=== PATIENT | male | born 1960 | race African-American/Black ===

== ENCOUNTER 2019-01-12 10:29 | Emergency (ER) | payer OTHER ==
[~2019-01-12] VITALS: Ht 170.2 cm; Wt 67.0 kg
[2019-01-12 12:15] VITALS: BP 132/79
== END 2019-01-12 12:17 | disposition home or self-care (01) ==
LOC: ER 10:49
DX: H92.12 Otorrhea, left ear (principal); J44.9 Chronic obstructive pulmonary disease, unspecified; E11.9 Type 2 diabetes mellitus without complications; Z86.73 Personal history of transient ischemic attack (TIA), and cerebral infarction without residual deficits
CPT/HCPCS: 99283

== ENCOUNTER 2019-11-08 02:27 | Inpatient (IN) | payer OTHER ==
[~2019-11-08] VITALS: Ht 172.7 cm; Wt 83.2 kg
[2019-11-08] MEDS: IPRATROPIUM/ALBUTEROL 0.5-3(2.5)MG/3ML NEB HHN SCH ×3 (00:36→21:49)
[2019-11-08] MEDS ORDERED: NITROGLYCERIN OINT 1GM/INCH UDPKT TD ONE (03:30)
[2019-11-08 03:53] LABS: BASOPHILS % 0.4 % (0.0-2.0); EOSINOPHILS % 1.9 % (0.0-5.0); HEMATOCRIT. 41.3 % (42.0-52.0); HEMOGLOBIN. 13.8 g/dL (14.0-18.0); LYMPHOCYTES % 13.7 % (20.0-50.0); MEAN CORPUSCULAR HEMOGLOBIN 27.6 pg (28.0-32.0); MEAN CORPUSCULAR VOLUME 82.7 fL (80.0-94.0); MEAN PLATELET VOLUME 7.1 fl (7.4-10.4); MONOCYTES % 6.5 % (2.0-8.0); NEUTROPHILS % 77.5 % (40.0-76.0); PLATELET 282 x1000/uL (130-400); RED CELL DISTRIBUTION WIDTH 16.2 % (11.6-14.6)
[2019-11-08 03:58] LABS: PROTHROMBIN TIME 10.6 sec (9.6-11.0)
[2019-11-08 04:03] LABS: CHLORIDE 102 mEq/L (98-107)
[2019-11-08] MEDS ORDERED: FUROSEMIDE 20MG/2ML VIAL IVP ONE ×2 (04:30→05:47)
[2019-11-08 10:32] VITALS: BP 117/72
[2019-11-08 13:00] VITALS: BP 108/71
[2019-11-08] MEDS ORDERED: MAGNESIUM/ALUMINUM HYDROXIDE/SIMETHICONE 30ML UDC PO PRN (13:45)
[2019-11-08] MEDS ORDERED: DEXTROSE 50% WATER 50ML SYRINGE IV PRN ×2 (13:45→17:45)
[2019-11-08] MEDS ORDERED: ONDANSETRON HCL 4MG/2ML INJ IV PRN (13:45)
[2019-11-08] MEDS ORDERED: ACETAMINOPHEN 325MG TABLET PO PRN (13:45)
[2019-11-08] MEDS ORDERED: IPRATROPIUM/ALBUTEROL 0.5-3(2.5)MG/3ML NEB HHN PRN (13:45)
[2019-11-08] MEDS ORDERED: DIPHENHYDRAMINE 50MG/ML VIAL IV PRN (13:45)
[2019-11-08] MEDS ORDERED: CLONIDINE 0.1MG TABLET PO PRN (13:45)
[2019-11-08] MEDS: ENOXAPARIN 40MG/0.4ML SYR SUBCUT SCH (14:56)
[2019-11-08] MEDS: FUROSEMIDE 40MG/4ML VIAL IVP SCH (14:56)
[2019-11-08] MEDS: SODIUM CHLORIDE 0.9% INJ 3ML FLUSH IVF SCH ×2 (14:57→22:23)
[2019-11-08] MEDS ORDERED: BLOOD SUGAR DIAGNOSTIC STRIP TEST SCH (17:40)
[2019-11-08] MEDS: BLOOD SUGAR DIAGNOSTIC STRIP TEST SCH ×2 (18:03→21:00)
[2019-11-08] MEDS: INSULIN LISPRO 100 UNITS/ML SUBCUT SCH ×2 (18:05→22:22)
[2019-11-08 20:00] VITALS: BP 102/69
[2019-11-08] MEDS ORDERED: KETOROLAC 30MG/ML VIAL IV PRN (21:45)
[2019-11-08] MEDS: DIPHENHYDRAMINE 50MG/ML VIAL IV NR (22:14)
[2019-11-09] VITALS: BP 110/90
[2019-11-09] MEDS: DIPHENHYDRAMINE 50MG/ML VIAL IV NR (00:26)
[2019-11-09 04:00] VITALS: BP 104/73
[2019-11-09] MEDS: IPRATROPIUM/ALBUTEROL 0.5-3(2.5)MG/3ML NEB HHN SCH ×5 (05:14→21:39)
[2019-11-09] MEDS: BLOOD SUGAR DIAGNOSTIC STRIP TEST SCH ×4 (06:56→21:00)
[2019-11-09] MEDS: SODIUM CHLORIDE 0.9% INJ 3ML FLUSH IVF SCH ×3 (06:58→21:34)
[2019-11-09 08:00] VITALS: BP 112/79
[2019-11-09] MEDS: INSULIN LISPRO 100 UNITS/ML SUBCUT SCH ×4 (08:08→21:32)
[2019-11-09] MEDS: FUROSEMIDE 40MG/4ML VIAL IVP SCH ×3 (08:10→17:33)
[2019-11-09] MEDS: ENOXAPARIN 40MG/0.4ML SYR SUBCUT SCH (08:10)
[2019-11-09 12:00] VITALS: BP 100/61
[2019-11-09 16:00] VITALS: BP 125/86
[2019-11-09] MEDS ORDERED: SITA100T11 MT (17:50)
[2019-11-09] MEDS ORDERED: DIGO125T80 MT (17:50)
[2019-11-09] MEDS ORDERED: GLIM4TAB36 MT (17:50)
[2019-11-09] MEDS ORDERED: ARIP5TAB58 MT (17:50)
[2019-11-09] MEDS ORDERED: CLOP75TA33 PO (17:50)
[2019-11-09] MEDS ORDERED: RAMI10CA68 MT (17:50)
[2019-11-09] MEDS ORDERED: ATOR40TA70 MT (17:50)
[2019-11-09] MEDS ORDERED: METO-385 MT (17:50)
[2019-11-09] MEDS ORDERED: CYM20 PO (17:50)
[2019-11-09] MEDS ORDERED: FURO40TA5 MT (17:50)
[2019-11-09] MEDS ORDERED: CANA1TAB4 MT (17:50)
[2019-11-09 20:00] VITALS: BP 118/77
[2019-11-09] MEDS: CARVEDILOL 6.25 MG TABLET PO SCH (21:25)
[2019-11-09] MEDS: GUAIFENESIN 200MG/10ML SUGAR FREE UDC PO PRN (21:29)
[2019-11-10] VITALS (7 sets, daily range): BP systolic 103–122; BP diastolic 67–85
[2019-11-10] MEDS: IPRATROPIUM/ALBUTEROL 0.5-3(2.5)MG/3ML NEB HHN SCH ×6 (01:03→21:56)
[2019-11-10] MEDS: FUROSEMIDE 40MG/4ML VIAL IVP SCH ×2 (06:29→17:26)
[2019-11-10] MEDS: SODIUM CHLORIDE 0.9% INJ 3ML FLUSH IVF SCH ×3 (06:29→21:58)
[2019-11-10] MEDS: BLOOD SUGAR DIAGNOSTIC STRIP TEST SCH ×4 (06:39→21:00)
[2019-11-10 07:46] LABS: BASOPHILS % 0.6 % (0.0-2.0); EOSINOPHILS % 3.9 % (0.0-5.0); HEMATOCRIT. 42.2 % (42.0-52.0); HEMOGLOBIN. 13.9 g/dL (14.0-18.0); LYMPHOCYTES % 21.5 % (20.0-50.0); MEAN CORPUSCULAR HEMOGLOBIN 26.9 pg (28.0-32.0); MEAN CORPUSCULAR VOLUME 81.5 fL (80.0-94.0); MEAN PLATELET VOLUME 7.2 fl (7.4-10.4); MONOCYTES % 11.1 % (2.0-8.0); NEUTROPHILS % 62.9 % (40.0-76.0); PLATELET 270 x1000/uL (130-400); RED BLOOD CELL COUNT 5.17 mill/uL (4.7-6.1); RED CELL DISTRIBUTION WIDTH 15.8 % (11.6-14.6)
[2019-11-10] MEDS: INSULIN LISPRO 100 UNITS/ML SUBCUT SCH ×4 (08:10→21:58)
[2019-11-10 08:21] LABS: CHLORIDE 102 mEq/L (98-107)
[2019-11-10] MEDS: LOSARTAN POTASSIUM 25 MG TABLET PO SCH (09:00)
[2019-11-10] MEDS: CARVEDILOL 6.25 MG TABLET PO SCH (09:00)
[2019-11-10] MEDS: ENOXAPARIN 40MG/0.4ML SYR SUBCUT SCH (09:24)
[2019-11-10 11:38] LABS: BG BASE EXCESS 2.6 mmol/L (-2.0-2.0); BG CARBOXYHEMOGLOBIN 0.9 % (0.5-1.5); BG DEOXYHEMOGLOBIN 5.6 % (0.0-5.0); BG FRACTION INSPIRED OXYGEN 21; BG HCO3 ACT 25.9 mmol/L (22.0-26.0); BG OXYGEN SATURATION 94.3 % (92.0-98.5); BG OXYHEMOGLOBIN 93.5 % (94.0-97.0); BG PCO2 36.3 mmHg (35.0-45.0); BG PH 7.472 (7.350-7.450); BG PO2 72.7 mmHg (75.0-100.0); BG SAMPLE SITE RIGHT BRACHIAL; BG TOTAL HEMOGLOBIN 14.8 g/dL (12.0-18.0); BG VENT MODE ROOM AIR
[2019-11-10 12:53] LABS: HEMATOCRIT 43.1 % (42.0-52.0); HEMOGLOBIN 14.3 g/dL (14.0-18.0); MEAN CORPUSCULAR VOLUME 81.4 fL (80.0-94.0); PLATELET 283 x1000/uL (130-400); RED CELL DISTRIBUTION WIDTH 15.8 % (11.6-14.6)
[2019-11-10] MEDS ORDERED: INSULIN GLARGINE UD 100 UNITS/ML SYR SUBCUT NR (13:00)
[2019-11-10 13:50] LABS: CLARITY URINE CLEAR (CLEAR); COLOR URINE YELLOW (YELLOW); KETONES URINE NEGATIVE (NEGATIVE); LEUKOCYTE ESTERASE URINE NEGATIVE (NEGATIVE); NITRITE URINE NEGATIVE (NEGATIVE); OCCULT BLOOD URINE NEGATIVE (NEGATIVE); PH URINE 6.5 (4.5-8.0); PROTEIN URINE NEGATIVE (NEGATIVE); SPECIFIC GRAVITY URINE 1.023 (1.005-1.030); UROBILINOGEN URINE 0.2 E.U./dL (0.2-1.0)
[2019-11-10] MEDS: CARVEDILOL 12.5MG TABLET PO SCH (20:27)
[2019-11-10] MEDS: GUAIFENESIN/CODEINE 200-20MG/10ML UDC PO PRN (21:46)
[2019-11-11] VITALS: BP 96/58
[2019-11-11] MEDS: IPRATROPIUM/ALBUTEROL 0.5-3(2.5)MG/3ML NEB HHN SCH ×6 (00:48→21:13)
[2019-11-11] MEDS: GUAIFENESIN/CODEINE 200-20MG/10ML UDC PO PRN ×2 (03:51→10:13)
[2019-11-11 03:54] VITALS: BP 99/60
[2019-11-11] MEDS: SODIUM CHLORIDE 0.9% INJ 3ML FLUSH IVF SCH ×3 (06:35→20:46)
[2019-11-11] MEDS: FUROSEMIDE 40MG/4ML VIAL IVP SCH ×2 (06:35→18:53)
[2019-11-11] MEDS: BLOOD SUGAR DIAGNOSTIC STRIP TEST SCH ×4 (07:40→20:52)
[2019-11-11 08:00] VITALS: BP 98/65
[2019-11-11] MEDS: INSULIN LISPRO 100 UNITS/ML SUBCUT SCH ×4 (08:49→21:00)
[2019-11-11] MEDS: ENOXAPARIN 40MG/0.4ML SYR SUBCUT SCH (08:50)
[2019-11-11] MEDS: CARVEDILOL 12.5MG TABLET PO SCH ×2 (09:00→20:52)
[2019-11-11] MEDS: LOSARTAN POTASSIUM 25 MG TABLET PO SCH (09:00)
[2019-11-11 12:00] VITALS: BP 112/89
[2019-11-11 15:43] LABS: HEMATOCRIT 42.2 % (42.0-52.0); MEAN CORPUSCULAR HEMOGLOBIN 27.1 pg (28.0-32.0); MEAN CORPUSCULAR VOLUME 81.6 fL (80.0-94.0); PLATELET 275 x1000/uL (130-400); RED BLOOD CELL COUNT 5.17 mill/uL (4.7-6.1); RED CELL DISTRIBUTION WIDTH 15.6 % (11.6-14.6)
[2019-11-11 15:59] LABS: CHLORIDE 98 mEq/L (98-107)
[2019-11-11 20:00] VITALS: BP 101/73
[2019-11-11] MEDS: GUAIFENESIN 200MG/10ML SUGAR FREE UDC PO PRN (20:59)
[2019-11-12] VITALS: BP 98/68
[2019-11-12] MEDS: IPRATROPIUM/ALBUTEROL 0.5-3(2.5)MG/3ML NEB HHN SCH ×4 (00:38→11:33)
[2019-11-12 04:00] VITALS: BP 136/93
[2019-11-12] MEDS: GUAIFENESIN/CODEINE 200-20MG/10ML UDC PO PRN (04:49)
[2019-11-12] MEDS: SODIUM CHLORIDE 0.9% INJ 3ML FLUSH IVF SCH (05:54)
[2019-11-12] MEDS: BLOOD SUGAR DIAGNOSTIC STRIP TEST SCH ×2 (05:54→12:40)
[2019-11-12 08:00] VITALS: BP 97/59
[2019-11-12] MEDS: LOSARTAN POTASSIUM 25 MG TABLET PO SCH (09:00)
[2019-11-12] MEDS: CARVEDILOL 12.5MG TABLET PO SCH (09:00)
[2019-11-12 09:12] VITALS: BP 109/74
[2019-11-12] MEDS: FUROSEMIDE 40MG/4ML VIAL IVP SCH (09:14)
[2019-11-12] MEDS: INSULIN LISPRO 100 UNITS/ML SUBCUT SCH ×2 (09:19→13:55)
[2019-11-12] MEDS: ENOXAPARIN 40MG/0.4ML SYR SUBCUT SCH (09:20)
[2019-11-12 11:43] LABS: BASOPHILS % 0.6 % (0.0-2.0); EOSINOPHILS % 3.6 % (0.0-5.0); HEMATOCRIT. 39.4 % (42.0-52.0); LYMPHOCYTES % 15.6 % (20.0-50.0); MEAN CORPUSCULAR HEMOGLOBIN 26.7 pg (28.0-32.0); MONOCYTES % 10.2 % (2.0-8.0); PLATELET 236 x1000/uL (130-400); RED BLOOD CELL COUNT 4.87 mill/uL (4.7-6.1); RED CELL DISTRIBUTION WIDTH 15.6 % (11.6-14.6)
[2019-11-12 12:00] VITALS: BP 100/70
[2019-11-12 12:01] LABS: CHLORIDE 98 mEq/L (98-107)
[2019-11-12] MEDS ORDERED: GUAI-824 MT (13:25)
[2019-11-12] MEDS ORDERED: IPRA3AMP9 NEB (13:25)
[2019-11-12 14:41] VITALS: BP 100/70
[2019-11-12] MEDS ORDERED: CARVEDILOL 12.5MG TABLET PO SCH (21:00)
== END 2019-11-12 16:15 | disposition home or self-care (01) | DRG 194 ==
LOC: ER 02:27 → 7WST 05:13 → EDBEDREQTM 05:15 → EDBEDREQ 05:15 → ENRESERV 10:09
PROVIDERS: ADMIT Internal Medicine; ATTEND Internal Medicine
PROC: 4B02XTZ Measurement of Cardiac Defibrillator, External Approach (ICD-10-PCS; principal; 2019-11-10)
DX: I11.0 Hypertensive heart disease with heart failure (principal); I47.2 Ventricular tachycardia; I27.20 Pulmonary hypertension, unspecified; I42.0 Dilated cardiomyopathy; I69.351 Hemiplegia and hemiparesis following cerebral infarction affecting right dominant side; J44.1 Chronic obstructive pulmonary disease with (acute) exacerbation; I50.23 Acute on chronic systolic (congestive) heart failure; E11.9 Type 2 diabetes mellitus without complications; E78.5 Hyperlipidemia, unspecified; F03.90 Unspecified dementia, unspecified severity, without behavioral disturbance, psychotic disturbance, mood disturbance, and anxiety; I34.0 Nonrheumatic mitral (valve) insufficiency; I49.3 Ventricular premature depolarization; Z82.49 Family history of ischemic heart disease and other diseases of the circulatory system; Z95.810 Presence of automatic (implantable) cardiac defibrillator; Z83.3 Family history of diabetes mellitus
CPT/HCPCS: 36415; 36600; 71045; 80048; 80053; 81003; 82375; 82805; 82962; 83735; 83880; 84484; 85025; 85027; 93005; 93306; 93970; 94618; 94640; 99284; J1200; J1650; J1815; J1885; J1940

== ENCOUNTER 2019-12-27 13:53 | Inpatient (IN) | payer OTHER ==
[~2019-12-27] VITALS: Ht 167.6 cm; Wt 86.6 kg
[~2019-12-27 13:53] MED LIST: ARIP5TAB58 MT; ATOR40TA70 MT; CANA1TAB4 MT; CLOP75TA33 PO; CYM20 PO; DIGO125T80 MT; FURO40TA5 MT; GLIM4TAB36 MT; IPRA3AMP9 NEB; METO-385 MT; RAMI10CA68 MT; SITA100T11 MT
[2019-12-27 14:40] LABS: BASOPHILS % 0.6 % (0.0-2.0); EOSINOPHILS % 1.2 % (0.0-5.0); HEMATOCRIT. 38.9 % (42.0-52.0); LYMPHOCYTES % 17.8 % (20.0-50.0); MEAN CORPUSCULAR HEMOGLOBIN 26.8 pg (28.0-32.0); MEAN CORPUSCULAR VOLUME 80.2 fL (80.0-94.0); MEAN PLATELET VOLUME 7.2 fl (7.4-10.4); MONOCYTES % 9.1 % (2.0-8.0); NEUTROPHILS % 71.3 % (40.0-76.0); PLATELET 254 x1000/uL (130-400); RED BLOOD CELL COUNT 4.85 mill/uL (4.7-6.1); RED CELL DISTRIBUTION WIDTH 16.7 % (11.6-14.6)
[2019-12-27 14:46] LABS: CHLORIDE 99 mEq/L (98-107)
[2019-12-27] MEDS ORDERED: DEXAMETHASONE 4MG/ML 1ML VIAL IV ONE (15:15)
[2019-12-27] MEDS ORDERED: IPRATROPIUM/ALBUTEROL 0.5-3(2.5)MG/3ML NEB HHN ONE ×2 (15:15→17:15)
[2019-12-27] MEDS ORDERED: FUROSEMIDE 40MG/4ML VIAL IVP ONE (15:45)
[2019-12-28] VITALS (14 sets, daily range): BP systolic 93–149; BP diastolic 56–90
[2019-12-28] MEDS ORDERED: HYDROCODONE/ACETAMINOPHEN 5/325MG TABLET PO PRN (04:00)
[2019-12-28] MEDS ORDERED: DEXTROSE 50% WATER 50ML SYRINGE IV PRN (04:00)
[2019-12-28] MEDS: PANTOPRAZOLE 40MG DR TABLET PO SCH (06:00)
[2019-12-28] MEDS ORDERED: METHYLPREDNISOLONE SOD SUCC 40 MG/ML VIAL IV SCH (06:00)
[2019-12-28] MEDS: BLOOD SUGAR DIAGNOSTIC STRIP TEST SCH ×4 (06:01→21:57)
[2019-12-28] MEDS ORDERED: INSULIN LISPRO 100 UNITS/ML SUBCUT SCH (07:20)
[2019-12-28] MEDS ORDERED: IPRATROPIUM/ALBUTEROL 0.5-3(2.5)MG/3ML NEB HHN SCH (08:00)
[2019-12-28 08:23] LABS: CHLORIDE 106 mEq/L (98-107)
[2019-12-28] MEDS ORDERED: FUROSEMIDE 40MG/4ML VIAL IVP SCH (09:00)
[2019-12-28] MEDS: ENOXAPARIN 30MG/0.3ML SYR SUBCUT SCH ×2 (09:11→22:09)
[2019-12-28 09:34] LABS: HEMATOCRIT. 41.8 % (42.0-52.0); HEMOGLOBIN. 13.6 g/dL (14.0-18.0); MEAN CORPUSCULAR HEMOGLOBIN 26.3 pg (28.0-32.0); MEAN CORPUSCULAR VOLUME 80.7 fL (80.0-94.0); MEAN PLATELET VOLUME 7.2 fl (7.4-10.4); PLATELET 291 x1000/uL (130-400); RED BLOOD CELL COUNT 5.18 mill/uL (4.7-6.1)
[2019-12-28] MEDS ORDERED: DIPHENHYDRAMINE 50MG/ML VIAL IV PRN (10:45)
[2019-12-28] MEDS ORDERED: AZITHROMYCIN 500 MG in DEXT 5% WATER 250 ML IV SCH (11:00)
[2019-12-28 11:58] LABS: BG BASE EXCESS -5.1 mmol/L (-2.0-2.0); BG CARBOXYHEMOGLOBIN 0.5 % (0.5-1.5); BG DEOXYHEMOGLOBIN 8.6 % (0.0-5.0); BG FRACTION INSPIRED OXYGEN 21; BG HCO3 ACT 17.3 mmol/L (22.0-26.0); BG METHEMOGLOBIN 0.1 % (0.0-1.5); BG OXYGEN SATURATION 91.3 % (92.0-98.5); BG OXYHEMOGLOBIN 90.8 % (94.0-97.0); BG PCO2 25.8 mmHg (35.0-45.0); BG PH 7.444 (7.350-7.450); BG PO2 61.7 mmHg (75.0-100.0); BG SAMPLE SITE RIGHT RADIAL; BG TOTAL HEMOGLOBIN 13.6 g/dL (12.0-18.0); BG VENT MODE ROOM AIR
[2019-12-28 12:21] LABS: PLATELET ESTIMATE NORMAL
[2019-12-28] MEDS: CEFTRIAXONE 1 G PREMIX 50 ML IV SCH (12:40)
[2019-12-28] MEDS: INSULIN LISPRO 100 UNITS/ML SUBCUT SCH ×3 (12:42→22:16)
[2019-12-28 12:48] LABS: D-DIMER 1.72 mg/L FEU (<0.50); INR 1.1; PARTIAL THROMBOPLASTIN TIME 26.3 sec (23.4-31.0); PROTHROMBIN TIME 11.4 sec (9.6-11.0)
[2019-12-28] MEDS ORDERED: LIDOCAINE HCL/PF 1% 2ML VIAL ONE (13:45)
[2019-12-28] MEDS: ARIPIPRAZOLE 5MG TABLET PO SCH (15:05)
[2019-12-28] MEDS: ASPIRIN 81MG TABLET PO SCH (15:05)
[2019-12-28] MEDS ORDERED: INSULIN GLARGINE UD 100 UNITS/ML SYR SUBCUT ONE (15:30)
[2019-12-28] MEDS: FUROSEMIDE 40MG/4ML VIAL IVP SCH (16:10)
[2019-12-28] MEDS: LINAGLIPTIN 5MG TABLET PO SCH (16:10)
[2019-12-28] MEDS ORDERED: [UNRECOGNIZED DRUG - OTHER] MT SCH (17:00)
[2019-12-28] MEDS ORDERED: CANAGLIFLOZIN MT SCH (17:00)
[2019-12-28] MEDS ORDERED: METFORMIN HCL MT SCH (17:00)
[2019-12-28 17:37] LABS: DIGOXIN 0.2 ng/mL (0.9-2.0)
[2019-12-28] MEDS: GLIMEPIRIDE 2MG TABLET PO SCH (17:53)
[2019-12-28 19:56] LABS: *AMPHETAMINES SCREEN URINE NEGATIVE (NEGATIVE); *BARBITURATES SCREEN URINE NEGATIVE (NEGATIVE)
[2019-12-28 19:57] LABS: *BENZODIAZEPINES SCREEN URINE NEGATIVE (NEGATIVE); *COCAINE SCREEN URINE NEGATIVE (NEGATIVE); CANNABINOID URINE SCREEN NEGATIVE (NEGATIVE); METHADONE URINE SCREEN NEGATIVE (NEGATIVE); OPIATES URINE SCREEN NEGATIVE (NEGATIVE); PHENCYCLIDINE URINE SCREEN NEGATIVE (NEGATIVE)
[2019-12-28] MEDS ORDERED: CARVEDILOL 3.125 MG TABLET PO SCH (21:00)
[2019-12-28] MEDS: METOPROLOL TARTRATE 25MG TABLET PO SCH (21:00)
[2019-12-28] MEDS ORDERED: INSULIN GLARGINE UD 100 UNITS/ML SYR SUBCUT SCH (22:00)
[2019-12-29] VITALS: BP 111/74
[2019-12-29] MEDS ORDERED: METHYLPREDNISOLONE SOD SUCC 40 MG/ML VIAL IV SCH (02:00)
[2019-12-29 04:00] VITALS: BP 100/66
[2019-12-29] MEDS: GLIMEPIRIDE 2MG TABLET PO SCH (06:35)
[2019-12-29] MEDS: PANTOPRAZOLE 40MG DR TABLET PO SCH (06:35)
[2019-12-29] MEDS: BLOOD SUGAR DIAGNOSTIC STRIP TEST SCH ×4 (06:39→21:34)
[2019-12-29] MEDS: INSULIN LISPRO 100 UNITS/ML SUBCUT SCH ×4 (06:45→21:51)
[2019-12-29 08:00] VITALS: BP 129/89
[2019-12-29] MEDS: ENOXAPARIN 30MG/0.3ML SYR SUBCUT SCH ×2 (10:40→21:49)
[2019-12-29] MEDS: CEFTRIAXONE 1 G PREMIX 50 ML IV SCH ×2 (10:40→17:00)
[2019-12-29] MEDS: METOPROLOL TARTRATE 25MG TABLET PO SCH ×2 (10:41→21:49)
[2019-12-29] MEDS: ATORVASTATIN CALCIUM 40MG TABLET PO SCH (10:41)
[2019-12-29] MEDS: FUROSEMIDE 40MG/4ML VIAL IVP SCH ×3 (10:41→16:55)
[2019-12-29] MEDS: LOSARTAN POTASSIUM 25 MG TABLET PO SCH (10:41)
[2019-12-29] MEDS: ASPIRIN 81MG TABLET PO SCH (10:42)
[2019-12-29] MEDS: CLOPIDOGREL 75MG TABLET PO SCH (10:42)
[2019-12-29] MEDS: DIGOXIN 125MCG TABLET PO SCH (10:42)
[2019-12-29 12:00] VITALS: BP 118/82
[2019-12-29] MEDS ORDERED: INSULIN LISPRO 100 UNITS/ML SUBCUT NR (13:30)
[2019-12-29] MEDS ORDERED: INSULIN GLARGINE UD 100 UNITS/ML SYR SUBCUT NR (14:30)
[2019-12-29] MEDS ORDERED: AZITHROMYCIN 250 MG in DEXT 5% WATER 250 ML IV SCH (15:00)
[2019-12-29] MEDS ORDERED: BLOO-1465 MT (15:18)
[2019-12-29] MEDS ORDERED: LEVO500T2 MT (15:18)
[2019-12-29] MEDS ORDERED: FURO-151 MT (15:18)
[2019-12-29] MEDS ORDERED: ALBU90AE INH (15:18)
[2019-12-29] MEDS ORDERED: FLUT1AER INH (15:18)
[2019-12-29] MEDS ORDERED: INSU100I28 SQ (15:18)
[2019-12-29] MEDS ORDERED: ASPI-1497 MT (15:18)
[2019-12-29] MEDS ORDERED: INSLIS SUBCUT (15:18)
[2019-12-29] MEDS ORDERED: LANC-934 TP (15:18)
[2019-12-29] MEDS: AZITHROMYCIN 500 MG TABLET PO SCH (15:20)
[2019-12-29] MEDS: ASCORBIC ACID 500 MG TABLET PO SCH (15:20)
[2019-12-29] MEDS: DULOXETINE HCL 20MG DR CAPSULE PO SCH (15:20)
[2019-12-29] MEDS: ARIPIPRAZOLE 5MG TABLET PO SCH (15:20)
[2019-12-29] MEDS: LINAGLIPTIN 5MG TABLET PO SCH (15:20)
[2019-12-29] MEDS: ZINC SULFATE 220 MG ( 50 ) CAPSULE PO SCH (15:21)
[2019-12-29 15:24] LABS: CHLORIDE 101 mEq/L (98-107)
[2019-12-29 15:30] LABS: BASOPHILS % 0.1 % (0.0-2.0); HEMATOCRIT. 41.2 % (42.0-52.0); HEMOGLOBIN. 13.4 g/dL (14.0-18.0); LYMPHOCYTES % 13.7 % (20.0-50.0); MEAN CORPUSCULAR HEMOGLOBIN 26.5 pg (28.0-32.0); MEAN CORPUSCULAR VOLUME 81.2 fL (80.0-94.0); MEAN PLATELET VOLUME 7.5 fl (7.4-10.4); MONOCYTES % 6.3 % (2.0-8.0); NEUTROPHILS % 79.9 % (40.0-76.0); PLATELET 297 x1000/uL (130-400); RED BLOOD CELL COUNT 5.07 mill/uL (4.7-6.1); RED CELL DISTRIBUTION WIDTH 16.9 % (11.6-14.6)
[2019-12-29 16:00] VITALS: BP 101/74
[2019-12-29] MEDS: INSULIN GLARGINE UD 100 UNITS/ML SYR SUBCUT SCH (21:51)
[2019-12-30] VITALS: BP 123/84
[2019-12-30 04:00] VITALS: BP 109/73
[2019-12-30] MEDS: BLOOD SUGAR DIAGNOSTIC STRIP TEST SCH ×4 (06:11→21:53)
[2019-12-30] MEDS: GLIMEPIRIDE 2MG TABLET PO SCH (06:39)
[2019-12-30] MEDS: INSULIN LISPRO 100 UNITS/ML SUBCUT SCH ×4 (06:40→22:10)
[2019-12-30] MEDS: ATORVASTATIN CALCIUM 40MG TABLET PO SCH (08:31)
[2019-12-30] MEDS: ARIPIPRAZOLE 5MG TABLET PO SCH (08:31)
[2019-12-30] MEDS: METOPROLOL TARTRATE 25MG TABLET PO SCH ×2 (08:31→21:00)
[2019-12-30] MEDS: ASCORBIC ACID 500 MG TABLET PO SCH (08:31)
[2019-12-30] MEDS: ASPIRIN 81MG TABLET PO SCH (08:31)
[2019-12-30] MEDS: CLOPIDOGREL 75MG TABLET PO SCH (08:31)
[2019-12-30] MEDS: LOSARTAN POTASSIUM 25 MG TABLET PO SCH (08:31)
[2019-12-30] MEDS: FUROSEMIDE 40MG/4ML VIAL IVP SCH ×3 (08:32→17:15)
[2019-12-30] MEDS: AZITHROMYCIN 500 MG TABLET PO SCH (08:32)
[2019-12-30] MEDS: ZINC SULFATE 220 MG ( 50 ) CAPSULE PO SCH (08:32)
[2019-12-30] MEDS: DULOXETINE HCL 20MG DR CAPSULE PO SCH (08:32)
[2019-12-30] MEDS: FAMOTIDINE 20MG TABLET PO SCH ×2 (08:32→21:53)
[2019-12-30] MEDS: LINAGLIPTIN 5MG TABLET PO SCH (08:32)
[2019-12-30] MEDS: DIGOXIN 125MCG TABLET PO SCH (08:32)
[2019-12-30] MEDS: ENOXAPARIN 30MG/0.3ML SYR SUBCUT SCH ×2 (08:33→21:54)
[2019-12-30 08:57] VITALS: BP 94/64
[2019-12-30] MEDS: INSULIN GLARGINE UD 100 UNITS/ML SYR SUBCUT SCH ×2 (10:22→22:09)
[2019-12-30 12:30] VITALS: BP 107/78
[2019-12-30 16:00] VITALS: BP 98/72
[2019-12-30] MEDS: CEFTRIAXONE 1 G PREMIX 50 ML IV SCH (18:27)
[2019-12-30 20:00] VITALS: BP 109/76
[2019-12-31] VITALS: BP 112/75
[2019-12-31 04:00] VITALS: BP 105/73
[2019-12-31] MEDS: FUROSEMIDE 40MG/4ML VIAL IVP SCH ×2 (06:37→17:57)
[2019-12-31] MEDS: BLOOD SUGAR DIAGNOSTIC STRIP TEST SCH ×4 (07:40→21:15)
[2019-12-31 08:00] VITALS: BP 124/85
[2019-12-31 10:14] LABS: HEMATOCRIT 45.3 % (42.0-52.0); HEMOGLOBIN 14.9 g/dL (14.0-18.0); MEAN CORPUSCULAR HEMOGLOBIN 26.7 pg (28.0-32.0); MEAN CORPUSCULAR VOLUME 81.3 fL (80.0-94.0); PLATELET 288 x1000/uL (130-400); RED BLOOD CELL COUNT 5.57 mill/uL (4.7-6.1); RED CELL DISTRIBUTION WIDTH 16.6 % (11.6-14.6)
[2019-12-31 10:23] LABS: CHLORIDE 98 mEq/L (98-107)
[2019-12-31] MEDS: ASCORBIC ACID 500 MG TABLET PO SCH (11:07)
[2019-12-31] MEDS: DIGOXIN 125MCG TABLET PO SCH (11:07)
[2019-12-31] MEDS: FAMOTIDINE 20MG TABLET PO SCH ×2 (11:08→21:14)
[2019-12-31] MEDS: AZITHROMYCIN 500 MG TABLET PO SCH (11:08)
[2019-12-31] MEDS: LOSARTAN POTASSIUM 25 MG TABLET PO SCH (11:08)
[2019-12-31] MEDS: GLIMEPIRIDE 2MG TABLET PO SCH (11:08)
[2019-12-31] MEDS: CLOPIDOGREL 75MG TABLET PO SCH (11:08)
[2019-12-31] MEDS: LINAGLIPTIN 5MG TABLET PO SCH (11:08)
[2019-12-31] MEDS: ZINC SULFATE 220 MG ( 50 ) CAPSULE PO SCH (11:09)
[2019-12-31] MEDS: ASPIRIN 81MG TABLET PO SCH (11:09)
[2019-12-31] MEDS: METOPROLOL TARTRATE 25MG TABLET PO SCH ×2 (11:09→21:00)
[2019-12-31] MEDS: INSULIN LISPRO 100 UNITS/ML SUBCUT SCH ×3 (11:10→18:14)
[2019-12-31] MEDS: INSULIN GLARGINE UD 100 UNITS/ML SYR SUBCUT SCH ×2 (11:11→21:35)
[2019-12-31 12:00] VITALS: BP 130/77
[2019-12-31] MEDS: ATORVASTATIN CALCIUM 40MG TABLET PO SCH (14:23)
[2019-12-31] MEDS: ENOXAPARIN 30MG/0.3ML SYR SUBCUT SCH ×2 (14:23→21:15)
[2019-12-31] MEDS: DULOXETINE HCL 20MG DR CAPSULE PO SCH (14:23)
[2019-12-31 16:00] VITALS: BP 106/71
[2019-12-31] MEDS: CEFTRIAXONE 1 G PREMIX 50 ML IV SCH (17:56)
[2019-12-31] MEDS: ARIPIPRAZOLE 5MG TABLET PO SCH (17:57)
[2019-12-31 20:00] VITALS: BP 104/65
[2019-12-31] MEDS ORDERED: CEFTRIAXONE 1 G PREMIX 50 ML IV SCH (21:00)
[2020-01-01] VITALS: BP 112/77
[2020-01-01 04:00] VITALS: BP 102/71
[2020-01-01] MEDS: INSULIN LISPRO 100 UNITS/ML SUBCUT SCH ×3 (06:55→13:11)
[2020-01-01] MEDS: BLOOD SUGAR DIAGNOSTIC STRIP TEST SCH (06:58)
[2020-01-01] MEDS: FUROSEMIDE 40MG/4ML VIAL IVP SCH (06:58)
[2020-01-01 08:00] VITALS: BP 105/74
[2020-01-01] MEDS: LOSARTAN POTASSIUM 25 MG TABLET PO SCH (09:00)
[2020-01-01] MEDS: METOPROLOL TARTRATE 25MG TABLET PO SCH (09:00)
[2020-01-01] MEDS: LINAGLIPTIN 5MG TABLET PO SCH (09:36)
[2020-01-01] MEDS: AZITHROMYCIN 500 MG TABLET PO SCH (09:36)
[2020-01-01] MEDS: ASCORBIC ACID 500 MG TABLET PO SCH (09:36)
[2020-01-01] MEDS: ZINC SULFATE 220 MG ( 50 ) CAPSULE PO SCH (09:36)
[2020-01-01] MEDS: FAMOTIDINE 20MG TABLET PO SCH (09:36)
[2020-01-01] MEDS: ASPIRIN 81MG TABLET PO SCH (09:36)
[2020-01-01] MEDS: ARIPIPRAZOLE 5MG TABLET PO SCH (09:37)
[2020-01-01] MEDS: DULOXETINE HCL 20MG DR CAPSULE PO SCH (09:37)
[2020-01-01] MEDS: DIGOXIN 125MCG TABLET PO SCH (09:37)
[2020-01-01] MEDS: ENOXAPARIN 30MG/0.3ML SYR SUBCUT SCH (09:37)
[2020-01-01] MEDS: GLIMEPIRIDE 2MG TABLET PO SCH (09:37)
[2020-01-01] MEDS: CLOPIDOGREL 75MG TABLET PO SCH (09:37)
[2020-01-01] MEDS: INSULIN GLARGINE UD 100 UNITS/ML SYR SUBCUT SCH (10:45)
[2020-01-01] MEDS: ATORVASTATIN CALCIUM 40MG TABLET PO SCH (10:47)
[2020-01-01 13:00] VITALS: BP 117/81
[2020-01-01 13:12] VITALS: BP 117/81
== END 2020-01-01 14:00 | disposition home or self-care (01) | DRG 140 ==
LOC: ER 13:53 → EDBEDREQ 22:41 → EDBEDREQTM 22:41 → ENRESERV 12-28 00:15 → 3WST 12-28 00:46 → 7EST 12-28 18:48 → 7WST 12-30 19:49 → 5WST 01-01 11:00
PROVIDERS: ADMIT Internal Medicine; ATTEND Internal Medicine
DX: J43.9 Emphysema, unspecified (principal); J96.21 Acute and chronic respiratory failure with hypoxia; I50.23 Acute on chronic systolic (congestive) heart failure; J18.9 Pneumonia, unspecified organism; I27.20 Pulmonary hypertension, unspecified; I42.9 Cardiomyopathy, unspecified; I11.0 Hypertensive heart disease with heart failure; Z99.81 Dependence on supplemental oxygen; E11.65 Type 2 diabetes mellitus with hyperglycemia; D72.810 Lymphocytopenia; E87.1 Hypo-osmolality and hyponatremia; D64.9 Anemia, unspecified; E78.5 Hyperlipidemia, unspecified; Z20.828 Contact with and (suspected) exposure to other viral communicable diseases; I34.0 Nonrheumatic mitral (valve) insufficiency; F03.90 Unspecified dementia, unspecified severity, without behavioral disturbance, psychotic disturbance, mood disturbance, and anxiety; I49.3 Ventricular premature depolarization; R74.0 Nonspecific elevation of levels of transaminase and lactic acid dehydrogenase [LDH]; Z86.73 Personal history of transient ischemic attack (TIA), and cerebral infarction without residual deficits; Z95.810 Presence of automatic (implantable) cardiac defibrillator; Z03.818 Encounter for observation for suspected exposure to other biological agents ruled out
CPT/HCPCS: 36415; 36600; 71045; 71250; 80048; 80053; 80076; 80162; 80305; 82375; 82805; 82962; 83036; 83880; 84145; 84484; 85025; 85027; 85362; 85379; 85384; 87070; 87430; 87635; 87804; 93005; 94640; 99285; J0456; J0696; J1100; J1200; J1650; J1815; J1940; J2920; J3490; J7060

== ENCOUNTER 2020-02-03 16:59 | Emergency (ER) | payer OTHER ==
[~2020-02-03] VITALS: Ht 167.6 cm; Wt 86.0 kg
[~2020-02-03 16:59] MED LIST changes: +ALBU90AE INH; +ASPI-1497 MT; +BLOO-1465 MT; -CANA1TAB4 MT; +FLUT1AER INH; +FURO-151 MT; +INSLIS SUBCUT; +INSU100I28 SQ; +LANC-934 TP; +LEVO500T2 MT
[2020-02-03 17:50] LABS: BASOPHILS % 0.6 % (0.0-2.0); EOSINOPHILS % 1.3 % (0.0-5.0); HEMATOCRIT. 48.5 % (42.0-52.0); HEMOGLOBIN. 16.3 g/dL (14.0-18.0); LYMPHOCYTES % 19.2 % (20.0-50.0); MEAN CORPUSCULAR HEMOGLOBIN 26.3 pg (28.0-32.0); MEAN CORPUSCULAR VOLUME 78.3 fL (80.0-94.0); MEAN PLATELET VOLUME 7.1 fl (7.4-10.4); MONOCYTES % 13.1 % (2.0-8.0); NEUTROPHILS % 65.8 % (40.0-76.0); PLATELET 238 x1000/uL (130-400); RED BLOOD CELL COUNT 6.19 mill/uL (4.7-6.1); RED CELL DISTRIBUTION WIDTH 17.2 % (11.6-14.6)
[2020-02-03 17:53] LABS: CHLORIDE 97 mEq/L (98-107)
[2020-02-03] MEDS ORDERED: FUROSEMIDE 40MG/4ML VIAL IVP ONE (20:00)
[2020-02-03] MEDS ORDERED: POTASSIUM CHLORIDE 20MEQ TABLET SR PO ONE (20:00)
[2020-02-04 00:01] VITALS: BP 180/119
== END 2020-02-04 00:21 | disposition short-term general hospital (02) ==
LOC: ER 16:59 → EDBEDREQ 19:56 → ER 02-04 00:21 → CANBEDREQ 02-04 01:04
DX: R06.02 Shortness of breath (principal); R07.89 Other chest pain; R00.0 Tachycardia, unspecified; R03.0 Elevated blood-pressure reading, without diagnosis of hypertension; I50.9 Heart failure, unspecified; J44.9 Chronic obstructive pulmonary disease, unspecified; E11.9 Type 2 diabetes mellitus without complications; F03.90 Unspecified dementia, unspecified severity, without behavioral disturbance, psychotic disturbance, mood disturbance, and anxiety; Z95.0 Presence of cardiac pacemaker; Z79.899 Other long term (current) drug therapy; Z79.4 Long term (current) use of insulin
CPT/HCPCS: 36415; 71045; 80053; 83615; 83880; 84484; 85025; 85379; 93005; 96374; 99285; J1940

== ENCOUNTER 2021-04-30 10:11 | Emergency (ER) | payer OTHER ==
[~2021-04-30] VITALS: Ht 177.8 cm; Wt 100.0 kg
[2021-04-30] MEDS ORDERED: ASPIRIN 81MG TABLET PO ONE (11:00)
[2021-04-30 11:34] LABS: BASOPHILS % 0.4 % (0.0-2.0); EOSINOPHILS % 0.5 % (0.0-5.0); HEMATOCRIT. 38.4 % (42.0-52.0); HEMOGLOBIN. 12.9 g/dL (14.0-18.0); LYMPHOCYTES % 17.7 % (20.0-50.0); MEAN CORPUSCULAR HEMOGLOBIN 27.3 pg (28.0-32.0); MEAN CORPUSCULAR VOLUME 81.4 fL (80.0-94.0); MEAN PLATELET VOLUME 6.9 fl (7.4-10.4); MONOCYTES % 10.7 % (2.0-8.0); NEUTROPHILS % 70.7 % (40.0-76.0); PLATELET 324 x1000/uL (130-400); RED BLOOD CELL COUNT 4.72 mill/uL (4.7-6.1)
[2021-04-30 11:38] LABS: CHLORIDE 102 mEq/L (98-107)
[2021-04-30 11:42] LABS: ETHANOL BLOOD < 10 mg/dL
[2021-04-30] MEDS ORDERED: ACETAMINOPHEN 325MG TABLET PO ONE (12:15)
[2021-04-30] MEDS ORDERED: POTASSIUM CHLORIDE 20MEQ TABLET SR PO ONE (12:15)
[2021-04-30] MEDS ORDERED: HYDROCODONE/ACETAMINOPHEN 5/325MG TABLET PO ONE (12:15)
[2021-04-30] MEDS ORDERED: MORPHINE SULFATE 2 MG/ML CPJ (NOT FOR IM USE) IV ONE (12:45)
[2021-04-30] MEDS ORDERED: IPRATROPIUM/ALBUTEROL 0.5-3(2.5)MG/3ML NEB NEB PRN (13:45)
[2021-04-30] MEDS ORDERED: DOCUSATE SODIUM 100MG CAPSULE PO PRN (13:45)
[2021-04-30] MEDS ORDERED: ACETAMINOPHEN 325MG TABLET PO PRN (13:45)
[2021-04-30] MEDS ORDERED: HYDROCODONE/ACETAMINOPHEN 5/325MG TABLET PO PRN (13:45)
[2021-04-30] MEDS ORDERED: NA PHOS,M-B/NA PHOS,DI-BA ENEMA 118ML PR PRN (13:45)
[2021-04-30] MEDS ORDERED: ONDANSETRON HCL 4MG/2ML INJ IV PRN (13:45)
[2021-04-30] MEDS ORDERED: LORAZEPAM 0.5MG TABLET PO PRN (13:45)
[2021-04-30] MEDS ORDERED: MAGNESIUM/ALUMINUM HYDROXIDE/SIMETHICONE 30ML UDC PO PRN (13:45)
[2021-04-30] MEDS ORDERED: DEXTROSE 50% WATER 50ML SYRINGE IV PRN (13:45)
[2021-04-30] MEDS ORDERED: CLONIDINE 0.1MG TABLET PO PRN (13:45)
[2021-04-30] MEDS ORDERED: GUAIFENESIN 200MG/10ML SUGAR FREE UDC PO PRN (13:45)
[2021-04-30] MEDS ORDERED: DIPHENHYDRAMINE 50MG/ML VIAL IV PRN (13:45)
[2021-04-30] MEDS ORDERED: ACETAMINOPHEN 650MG SUPP PR PRN (13:45)
[2021-04-30] MEDS ORDERED: IPRATROPIUM/ALBUTEROL 0.5-3(2.5)MG/3ML NEB NEB SCH (14:00)
[2021-04-30] MEDS ORDERED: METHYLPREDNISOLONE SOD SUCC 40 MG/ML VIAL IV SCH (14:00)
[2021-04-30] MEDS ORDERED: FUROSEMIDE 40MG/4ML VIAL IVP SCH (14:00)
[2021-04-30] MEDS ORDERED: CEFTRIAXONE 1 G PREMIX 50 ML IV SCH (14:00)
[2021-04-30 15:26] LABS: CLARITY URINE CLEAR (CLEAR); COLOR URINE YELLOW (YELLOW); KETONES URINE NEGATIVE (NEGATIVE); LEUKOCYTE ESTERASE URINE NEGATIVE (NEGATIVE); NITRITE URINE NEGATIVE (NEGATIVE); OCCULT BLOOD URINE NEGATIVE (NEGATIVE); PROTEIN URINE NEGATIVE (NEGATIVE); SPECIFIC GRAVITY URINE 1.018 (1.005-1.030); UROBILINOGEN URINE 0.2 E.U./dL (0.2-1.0)
[2021-04-30 15:35] LABS: INR 1.1; PROTHROMBIN TIME 11.6 sec (9.6-11.0)
[2021-04-30 15:42] LABS: CREATINE KINASE 172 IU/L (39-308)
[2021-04-30 15:45] LABS: CREATINE KINASE MB FRACTION < 1.0 ng/mL (0.5-3.6)
[2021-04-30 16:08] LABS: *AMPHETAMINES SCREEN URINE NEGATIVE (NEGATIVE); *BARBITURATES SCREEN URINE NEGATIVE (NEGATIVE); *BENZODIAZEPINES SCREEN URINE NEGATIVE (NEGATIVE); *COCAINE SCREEN URINE NEGATIVE (NEGATIVE)
[2021-04-30 16:09] LABS: CANNABINOID URINE SCREEN NEGATIVE (NEGATIVE); METHADONE URINE SCREEN NEGATIVE (NEGATIVE); OPIATES URINE SCREEN PRESUMTIVE POSITIVE (NEGATIVE); PHENCYCLIDINE URINE SCREEN NEGATIVE (NEGATIVE)
[2021-04-30] MEDS ORDERED: BLOOD SUGAR DIAGNOSTIC STRIP TEST SCH (17:00)
[2021-04-30] MEDS ORDERED: FUROSEMIDE 40MG/4ML VIAL IVP NR (17:05)
[2021-04-30 17:51] VITALS: BP 117/73
[2021-04-30] MEDS ORDERED: IPRATROPIUM/ALBUTEROL 0.5-3(2.5)MG/3ML NEB HHN SCH (18:00)
[2021-04-30] MEDS ORDERED: INSULIN LISPRO 100 UNITS/ML SUBCUT SCH (18:20)
[2021-04-30] MEDS ORDERED: ENOXAPARIN 30MG/0.3ML SYR SUBCUT SCH (21:00)
[2021-04-30] MEDS ORDERED: FAMOTIDINE 20MG TABLET PO SCH ×2 (21:00)
[2021-05-01] MEDS ORDERED: ASPIRIN 81MG EC TABLET PO SCH (09:00)
== END 2021-04-30 18:31 | disposition short-term general hospital (02) ==
LOC: ER 10:11 → EDBEDREQ 13:11 → EDBEDREQTM 13:11 → CANBEDREQ 17:57 → ER 18:31
DX: I50.9 Heart failure, unspecified (principal); E87.6 Hypokalemia; J44.9 Chronic obstructive pulmonary disease, unspecified; F03.90 Unspecified dementia, unspecified severity, without behavioral disturbance, psychotic disturbance, mood disturbance, and anxiety; E11.9 Type 2 diabetes mellitus without complications; Z95.0 Presence of cardiac pacemaker; Z79.899 Other long term (current) drug therapy; Z20.822 Contact with and (suspected) exposure to COVID-19
CPT/HCPCS: 36415; 71045; 80053; 80305; 80320; 81003; 82550; 82553; 82728; 83540; 83550; 83735; 83880; 84132; 84484; 85025; 85610; 87040; 87086; 87426; 93005; 96365; 96366; 96375; 99285; J0696; J1940; J2270; J2920; Z7610; G0480